=== PATIENT | male | born 1985 | race Caucasian/White ===

== ENCOUNTER 2023-03-17 22:27 | Emergency (ER) | payer MEDICAID, SELFPAY ==
[2023-03-17 22:28] VITALS: BP 126/87; PULSE 100; RESP 18; TEMP 36.7; O2SAT 96; BMI 25.9
--- NOTE | 2023-03-17 22:31 | EDS_ITS ---
HPI History of Present Illness Chief Complaint: Head Injury PFSH PFSH Allergy/AdvReac Type Severity Reaction Status Date / Time No Known Allergies Allergy Verified 03/17/23 22:30 EXAM Physical Exam Const Vital Signs: 03/17/23 22:28 Temperature 98.1 F Temperature Source Temporal Pulse Rate 100 Respiratory Rate 18 Blood Pressure 126/87 H Blood Pressure Mean 100 Pulse Ox 96 Oxygen Delivery Method Room Air [facility] Narrative Medical decision making narrative: HISTORY OF PRESENT ILLNESS: 37-year-old male here for concern for head laceration. The patient states he was work on his car when he tried to stand up and hit the back of his head. He notes a laceration to the back of the head. Denies loss of consciousness, vomiting. Denies taking blood thinners. REVIEW OF SYSTEMS: Pertinent positives: Head laceration Pertinent negatives: Loss of consciousness, focal numbness weakness or loss of sensation PHYSICAL EXAM: Nursing triage notes reviewed, Vital signs reviewed Primary Survey Airway: Intact Breathing: Bilateral breath sounds Circulation: Palpable bilateral femorals, Palpable bilateral radial, Palpable bilateral DP and Palpable bilateral PT Disability / Spine precautions GCS Score: Eye Openin Verbal Response: 5 Motor Response: 6 Secondary Survey Constitutional: Please see MDM Head: Midface stable, NO jaw malocclusion, No Cephalohematoma, approximately 2 cm linear superficial laceration noted to the posterior scalp, no galeal involvement Eye: Pupils equal round and reactive to light, Extraocular muscles intact and No periorbital ecchymosis or stepoff, no evidence of entrapment ENT: Oropharynx clear, no lacerations, no hemotympanum, no raccoon eyes or radford sign Cervical spine / Neck: No cervical spine bony tenderness, crepitance, or stepoff deformity Trachea midline Lungs: Clear to auscultation, No asymmetric rise and No crepitus, no flail chest Cardiac: Regular rate and rhythm and No murmurs Abdomen: Soft, Nontender and No rebound Pelvis: Pelvis stable to compression : No evidence of genital injury Back: No midline bony tenderness to thoracic/lumbar/sacral spines Neuro: Alert and oriented x3, neuro exam at baseline, cranial nerves II through XII are intact. No pain with extraocular muscle movement. There is negative test of skew. Normal speech. 5 of 5 strength in upper and lower extremities in flexion extension. Intact sensation to light touch in upper and lower extremity dermatomes. No truncal or extremity ataxia. No dysdiadochokinesia. Normal gait. 2+ reflexes. No meningeal signs. Negative Babinski. NIH of 0 Extremities: NO gross Deformities Psych: Normal affect Nursing triage notes reviewed, Vital signs reviewed MEDICAL DECISION MAKING: Chief Complaint: Head laceration External records reviewed: No recent ED visits or hospitalizations, no recent advanced imaging of the head MDM Narrative: The patient was hemodynamically stable, afebrile, nontoxic-appearing. There are no focal neurologic deficits on my initial exam. Primary secondary trauma surveys concerning for head laceration. Although the patient had trauma he had no loss of consciousness or red flag signs to suggest intracranial hemorrhage and as such I do not think it is appropriate for a CT scan at this time. Patient is greater than 16, is not on blood thinners, no seizure after injury, GCS was stable 2 hours postinjury, no Spectrobid or depressed skull fracture, no evidence of basilar skull fracture, no vomiting. Age less than 65, no retrograde amnesia and mechanism is not dangerous. CT scan of the head is not indicated at this time. Laceration was repaired, tetanus was updated. Please see below procedure note. Procedure: Laceration repair. The procedure was performed by myself. Indication: Wound repair Risks and benefits: risks, benefits and alternatives were discussed Consent: Consent was obtained. Wound Details: 2 cm superficial linear laceration to the posterior scalp, no galeal involvement Anesthesia: Topical lidocaine (1%) with epinephrine Wound prep: Patient was prepped and draped in the usual sterile fashion. Tetanus: Updated today Irrigation Solution: Saline Wound Preparation: Cleaned thoroughly with topical chlorhexidine The wound was explored to its base in a bloodless field. Procedure Description: I placed 5 veronica with good approximation Patient tolerated the procedure well with no immediate complications Factors affecting care: None Social determinants of health: None History obtained from others: Shared decision making: I will have a discussion with the patient and or visitors regarding risk/benefits of further testing or admission. They will be made aware of of the risk/benefits inherent in this decision they will be given the opportunity to voice understanding. Consults: None Discharge Plan Triage Chief Complaint: Head Injury ED Provider: Cosme Abdi Dx/Rx/DC Orders Primary Care Provider: Care Physician,No Primary Referrals: NOT,DEFINED [Non-Staff] -
[2023-03-17] MEDS: Diphth,Pertuss(Acell),Tet Vac 0.5 ML Vial IM (23:45)
[2023-03-17] MEDS: Lidocaine 1% (20 ml mdv) 20 ML Vial 5 ML INFILT (23:46)
[2023-03-17] MEDS: oxyCODONE 5 MG Tablet PO (23:46)
== END 2023-03-18 00:12 | disposition home or self-care (01) ==
PROVIDERS: Emergency Provider Emergency Medicine; Visit Provider Emergency Medicine
DX: S01.01XA Laceration without foreign body of scalp, initial encounter (principal); W22.09XA Striking against other stationary object, initial encounter; Y93.89 Activity, other specified; Z23 Encounter for immunization
CPT/HCPCS: 12001; 90471; 90715; 99284

== ENCOUNTER 2023-11-08 22:04 | Emergency (ER) | payer SELFPAY ==
[2023-11-08 22:05] VITALS: BP 131/83; PULSE 92; RESP 18; TEMP 36.7; O2SAT 97; BMI 26.7
--- NOTE | 2023-11-08 22:19 | EDS_ITS ---
HPI History of Present Illness Chief Complaint: Lower Extremity Injury Informant: patient Occured/Mechanism Mechanism/Context: Yes blunt trauma Onset/Context/Timing Onset: Today (JPTA) Context: Sudden Onset Timing: Continuous Quality of Pain: Aching Location: R foot 5th toe Current Severity: Severe Maximum Severity: Severe Worsened by: moving, walking Associated Symptoms Associated Symptoms: Negative for Parasthesia, Weakness or Loss of Funtion Narrative Narrative: 38-year-old who is healthy and injured his right small toe accidentally on the side of a step while he was getting dressed he states. No other injuries. PFSH PFSH Medical History no medical history Home Medications NK 03/17/23 [History Last Taken Unknown] Allergy/AdvReac Type Severity Reaction Status Date / Time No Known Allergies Allergy Verified 11/08/23 22:06 Surgical History (Updated 11/08/23 @ 22:17 by Yuliet Carlos) History of appendectomy Social History (Updated 11/08/23 @ 22:17 by Yuliet Carlos) household members: family housing: house Smoking Status: Never smoker ROS ROS ED Constitutional Constitutional ED: Denies chills or fever(s) Musculoskeletal Musculoskeletal: Reports extremity pain; Denies neck pain Integumentary Denies Abrasions, rash or wounds Neurologic Neurologic: Denies paresthesias or weakness EXAM Physical Exam Const Vital Signs: 11/08/23 22:05 Temperature 98.0 F Temperature Source Temporal Pulse Rate 92 Respiratory Rate 18 Blood Pressure 131/83 H Blood Pressure Mean 99 Pulse Ox 97 Oxygen Delivery Method Room Air Positive well nourished and well developed General Appearance ED: well developed and NAD Neck full ROM and supple Back/Spine normal ROM and normal to inspection Extremity Extremity Narrative: Purpuric right fifth toe swollen and tender without deformity. Also tender to distal fifth metatarsal but no other bony tenderness in the foot including the base of the fifth metatarsal. Neuro oriented x3, no focal motor deficits and no sensory deficits noted Sensorium / Orientation: alert Psych mental status grossly normal and thought process normal Skin no wounds Skin Narrative: Intact right foot Rashes: no rashes MDM MDM MDM Narrative Medical decision making narrative: 30 series of the right foot on my interpretation are negative for acute fracture in the area of interest. Radiology in agreement. Patient was given a postop shoe for comfort and shown how to dale tape his toes, he is given [place] here for pain but I see no reason to prescribe more narcotics, [id number] medications and other methods of supportive care advised. Radiography Diagnostic Testing: Clinical Impression(s) from Imaging Studies Foot X-Ray 11/08/23 22:30 IMPRESSION: Mild degenerative disease as described with no acute fracture or subluxation. Electronically Signed: Yanira Walker MD at 22:52 EST Reading Location ID and State: [facility] / [place] , Service support , Discharge Plan Triage Chief Complaint: Lower Extremity Injury ED Provider: Darrius Calderon Dx/Rx/DC Orders Clinical Impression: Contusion of right great toe without damage to nail, initial encounter Instructions: ED Finger or Toe Contusion Prescriptions: No Action NK Primary Care Provider: Care Physician,No Primary Referrals: Doctor,Your [Non-Staff] - As Needed Disposition Disposition: Home, Self Care
[2023-11-08] MEDS: HYDROcodone Bitartrate/Apap 5/325 Tablet PO (22:23)
--- NOTE | 2023-11-08 22:30 | RAD_ITS ---
STUDY: X-RAY - RIGHT FOOT CLINICAL: Male, 38 years old. injury TECHNIQUE: 3 view(s) of the foot. COMPARISON: None. FINDINGS: Normal talus, calcaneus, and tarsal bones. Normal visualized subtalar, talonavicular, calcaneocuboid, tarsal and tarsometatarsal articulations. Normal metatarsi. There is degenerative arthrosis of the metatarsophalangeal joint of the hallux . Normal tibial and fibular sesamoid bones. Normal interphalangeal joint of the great toe. Normal phalanges of the great toe. Normal second through fifth metatarsophalangeal joints. Normal interphalangeal joints and phalanges of the lesser toes. Mild soft tissue swelling along the dorsum of the foot. There is no demonstrated fracture. RAD/Foot min 3 Views IMPRESSION: Mild degenerative disease as described with no acute fracture or subluxation. Electronically Signed: Yanira Walker MD at 22:52 EST ,
--- OUTSIDE RECORDS SUMMARY | 2023-11-08 22:38 | XMS RPT_ITS | CCD ---
Author Name Unknown Address [address] [place] [id number] Organization [facility] Care Team Providers Care Memorandum Statement Clerk Name Role Phone Justice Maher Unavailable Unavailable Justice Maher Unavailable Unavailable Justice Maher Unavailable Unavailable Justice Maher Unavailable Unavailable TremontDatToribio P. Unavailable Unavailabl e Tremont, Toribio P. Unavailable Unavailabl e UNKNOWN, PCP Unavailable Unavailable UNKNOWN, PCP Unavailable Unavailable TremontToribio daniel Unavailable Unava ilable TremontToribio Unavailable Unava ilable TremontToribiorick Unavailable Unava ilable UNKNOWN, PCP Unavailable Unavailable Unavailable Primary Care Provider UnavailKELLI Mosley Attending Unavailable CECILIO CONTI Primary Care Unavailable Cecilio Conti MD Primary Care Provider Allergies Allergy Classification Reported Allergen(s) Allergy Type Date of Onset Reaction(s) Facility (3 sources) Amoxicillin; Translations: [AMOXICILLIN] Drug Allergy 02-21-2019 Rash [facility] Medications Current Medications Medication Drug Class(es) Dates Sig (Normalized) Sig (Original) benzonatate 100 mg oral capsule (1 source) Non-narcotic Antitussive Start: 11-29-2022 End: 12-06-2022 take 1 capsule by mouth every eight hours as needed for cough and cough benzonatate (TESSALON PERLES) 100 mg capsule Indications: Acute cough Take 1 capsule by mouth three times daily as needed for up to 7 days. 21 capsule 0 11/29/2022 12/06/2022 Active Completed/Discontinued Medications Medication Drug Class(es) Dates Sig (Normalized) Sig (Original) acetaminophen 500 mg oral tablet (2 sources) Start: 08-07-2019 take 2 tablets by mouth every six hours as needed acetaminophen (TYLENOL) 500 mg tablet Take 2 tablets by mouth four times daily as needed for Pain or Fever. Do not exceed 8 tablets (4 grams) in a 24 hour period 50 tablet 0 08/07/2019 Active Problems Active Problems Problem Classification Problem Date Documented Da te Episodic/Chronic Anxiety disorders (2 sources) Anxiety; Translations: [Anxiety disorder, unspecified] Onset: 10-18-2021 10-18-2021 Chronic Appendicitis and other appendiceal conditions (1 source) Appendicitis and other appendiceal conditions Onset: 06-28-2017 Other lower respiratory disease (1 source) Cough; Translations: [Acute cough] Episodic Other upper respiratory infections (2 sources) Sore throat symptom; Translations: [Acute pharyngitis, unspecified] Episodic Rehabilitation care; fitting of prostheses; and adjustment of devices (2 sources) Patient encounter status; Translations: [Encounter for fitting and adjustment of other specified devices] Onset: 04-10-2014 04-10-2014 Chronic Sprains and strains (1 source) Strain of unspecified muscle, fascia and tendon at shoulder and upper arm level, left arm, initial encounter; Translations: [Strain of left elbow, initial encounter] Onset: 10-04-2022 Episodic Substance-related disorders (2 sources) Tobacco user; Translations: [Nicotine dependence, unspecified, uncomplicated] Onset: 10-18-2021 10-18-2021 Chronic Unclassified (1 source) Unknown / UNK(Unknown) Onset: 03-04-2018 Past or Other Problems Problem Classification Problem Date Documented Da te Episodic/Chronic Fracture of lower limb (2 sources) Closed fracture of metatarsal bone; Translations: [Fracture of unspecified metatarsal bone(s), unspecified foot, initial encounter for closed fracture] Onset: 04-15-2014 04-15-2014 Episodic Other injuries and conditions due to external causes (2 sources) Bone injury; Translations: [Other injury of unspecified body region, initial encounter] Onset: 04-15-2014 04-15-2014 Episodic Other injuries and conditions due to external causes (2 sources) Hematoma; Translations: [Other injury of unspecified body region, initial encounter] Onset: 04-15-2014 04-15-2014 Episodic Other non-traumatic joint disorders (2 sources) Chronic pain of right upper limb; Translations: [Pain in right shoulder] Onset: 10-19-2021 10-19-2021 Episodic Spondylosis; intervertebral disc disorders; other back problems (2 sources) Chronic neck pain; Translations: [Cervicalgia] Onset: 10-19-2021 10-19-2021 Episodic Unclassified (1 source) LEFT THUMB LACERATION Onset: 03-04-2018 Viral infection (3 sources) Disease caused by 2019-nCoV; Translations: [COVID-19] Onset: 10-18-2021 Episodic Results Test Name Value Interpretation Reference Range Facil ity Vital Signs Date Time Vital Sign Value Performing Clinician Faci lity 11-29-2022 14:59-0500 Body temperature 97.3 [degF] Liliya Lopez APRN.ASSEMBLER CAMPER Work Phone: [facility] 11-29-2022 14:59-0500 Body weight 94.26 kg Liliya Lopez APRN.CNP Work Phone: [facility] 11-29-2022 14:59-0500 Diastolic blood pressure 64 mm[Hg] Liliya Lopez APRN.ASSEMBLER CAMPER Work Phone: [facility] 11-29-2022 14:59-0500 Heart rate 68 /min Liliya Lopez APRN.ASSEMBLER CAMPER Work Phone: [facility] 11-29-2022 14:59-0500 Respiratory rate 16 /min Liliya Lopez APRN.ASSEMBLER CAMPER Work Phone: [facility] 11-29-2022 14:59-0500 SaO2% (BldA) [Mass fraction] 98 % Liliya Lopez APRN.ASSEMBLER CAMPER Work Phone: [facility] 11-29-2022 14:59-0500 Systolic blood pressure 104 mm[Hg] Liliya Lopez APRN.ASSEMBLER CAMPER Work Phone: [facility] Encounters Encounter Date Encounter Type Care Provider Facility Start: 11-29-2022 End: 11-29-2022 Patient encounter procedure Liliya Lopez APRN.CNP Work Phone: [facility] Procedures Date Procedure Procedure Detail Performing Clinician Start: 11-29-2022 STREP A MOLECULAR (POC) Liliya Lopez APRN.CNP Work Phone: Start: 10-17-2021 Adult depression screening assessment Cecilio Conti MD Work Phone: Plan of Treatment Date Care Activity Detail Author Start: 03-04-2028 Urine microalbumin profile DTAP,TDAP,TD (5 - Td or Tdap) [facility] Start: 11-06-2022 DEPRESSION ASSESSMENT DEPRESSION ASS ESSMENT [facility] Start: 10-18-2022 PNEUMOCOCCAL (2 - PCV) PNEUMOCOCCAL (2 - PCV) [facility] Start: 10-17-2022 Adult depression screening assessment DEPRESSION SCREENING [facility] Start: 07-07-2022 Influenza vaccination INFLUENZA (#1) [facility] Start: 2018 LIPID SCREEN LIPID SCREEN [facility] Start: 2001 HEPATITIS C SCREENING HEPATITIS C SC CHOCONING [facility] Start: 2001 HIV SCREENING HIV SCREENING [facility] Start: 1983 HEPATITIS B (1 of 3 - 3-dose series) HEPATITIS B (1 of 3 - 3-dose series) [facility] Immunizations Immunization Date Immunization Notes Care Provider Crystal chance 10-18-2021 pneumococcal polysaccharide vaccine, 23 valent Cecilio Conti MD Work Phone: [facility] 08-28-2021 influenza, injectabl e, quadrivalent, preservative free Cecliio Conti MD Work Phone: [facility] Work Phone: 03-20-2021 COVID-19 vaccine, ag e 12+ yr ([email or web address] - PURPLE TOP) Cecilio Conti MD Work Phone: [facility] Work Phone: 09-26-2020 influenza, injectabl e, quadrivalent, preservative free Cecilio Conti MD Work Phone: [facility] Work Phone: 09-29-2019 influenza, injectabl e, quadrivalent, contains preservative Cecilio Conti MD Work Phone: [facility] 03-04-2018 tetanus toxoid, redu joe diphtheria toxoid, and acellular pertussis vaccine, adsorbed Cecilio Conti MD Work Phone: [facility] Work Phone: 08-30-2016 tetanus toxoid, redu joe diphtheria toxoid, and acellular pertussis vaccine, adsorbed Cecilio Conti MD Work Phone: [facility] Work Phone: 01-07-2015 tetanus toxoid, redu joe diphtheria toxoid, and acellular pertussis vaccine, adsorbed Cecilio Conti MD Work Phone: [facility] Work Phone: 03-04-2013 tetanus toxoid, redu joe diphtheria toxoid, and acellular pertussis vaccine, adsorbed Cecilio Conti MD Work Phone: [facility] Payers Date Payer Category Payer Medicaid [id number] 2020 Medicaid [employer] [id number] 2020-Present [phone] [address] [place] [address] Medicaid [id number] Private Health Insurance [id number] Social History Date Type Detail Facility Start: 10-18-2021 [facility] Work Phone: End: 08-06-2022 History of tobacco use Cigarette Smoker [facility] Work Phone: Start: 10-18-2021 End: 10-03-2022 Cigarettes smoked current (pack per day) - Reported 1 [facility] Start: 10-18-2021 End: 10-03-2022 Tobacco use and exposure Smokeless tobacco non-user [facility] Work Phone: Start: 10-18-2021 End: 11-29-2022 Alcohol intake Current drinker of alcohol (finding) [facility] Start: 10-17-2021 History SDOH Alcohol Frequency 3 [facility] Start: 10-17-2021 History SDOH Alcohol Std Drinks 2 [facility] Start: 04-05-2014 History SDOH Alcohol Comment rarely [facility] Start: 10-17-2021 History SDOH Social Connections Meetings 1 [facility] Start: 10-17-2021 History SDOH Physica l Activity DPW 5 [facility] Start: 10-17-2021 History SDOH Physica l Activity MPS 15 [facility] Start: 1985 Sex Assigned At Not on file [facility] Start: 10-03-2022 Tobacco smoking stat us MEIS Ex-smoker [facility] End: 08-06-2022 History of tobacco use Current smoker [facility] History of Present illness Narrative 11-29-2022 Liliya Lopez APRN.ASSEMBLER CAMPER - 11/29/2022 3:09 PM EST Note Date & Type Note Facility 11-29-2022 History of Presen t illness Narrative CC: Patient presents with: Cough: Cough, ST, SOB and sinus drainage x 3 days HPI: Jaquan Galloway is a 37 year old male who presents to the office with complaint of cough, nonproductive, sore throat, and sinus symptoms for a few days. Symptoms are worsening Associated symptoms includes dyspnea and says lungs feel heavy. Denies fever, ear pain, nausea, vomiting , and diarrhea. Treatments tried include nothing so far. with no relief of symptoms. Sick contacts: unknown. History of asthma, frequent episodes of bronchitis, chronic bronchitis, bronchiectasis or COPD: No Smoker: No Seasonal/environmental allergies: No The ROS is otherwise negative. The patient's pmh, medications, allergies, and past visits are reviewed. PHYSICAL EXAM: BP 104/64 Pulse 68 Temp 36.3 C (97.3 F) (Tympanic) Resp 16 Wt 94.3 kg (207 lb 12.8 oz) SpO2 98% BMI 25.63 kg/m General appearance: alert, cooperative, pleasant, in no acute distress Head: Normocephalic Eyes: EOM's intact, conjunctiva pink and moist, no icterus, sclera white, non-injected Ears: Right ear: External ear/canal- Normal, TM - clear with good landmarks. Left ear: External ear/canal- Normal, TM - clear with good landmarks Oropharynx:moist without lesions, No erythema, exudates or tonsillar hypertrophy. Heart: Negative. RRR without obvious murmur, gallop, or rubs. No ectopy. Lungs: clear to auscultation, without rales or wheeze, good air exchange PAST MEDICAL HISTORY Diagnosis Date Anxiety Back pain Genital warts Tobacco use disorder PAST SURGICAL HISTORY Procedure Laterality Date ORTHOPEDICS SURGERY HX Right right shoulder, early 20's ALLERGIES Amoxicillin MEDICATIONS acetaminophen (TYLENOL) 500 mg tablet Take 2 tablets by mouth four times daily as needed for Pain or Fever. Do not exceed 8 tablets (4 grams) in a 24 hour period nicotine (NICODERM CQ) 21 mg/24 hr Apply 1 Patch as directed every 24 hours. (Patient not taking: Reported on 10/03/2022) fluticasone (FLONASE) 50 mcg/actuation nasal spray Use 2 Sprays in each nostril daily at bedtime. (Patient not taking: Reported on 10/03/2022) ibuprofen (MOTRIN) 600 mg tablet Take 1 tablet by mouth every 6 hours as needed. (Patient not taking: Reported on 10/03/2022) FAMILY HISTORY Problem Relation Age of Onset COPD Mother Colon Polyps Father COPD Father other (Aortic aneurysm) Father Social History Tobacco Use Smoking status: Former Packs/day: 1.00 Years: 22.00 Pack years: 22.00 Types: Cigarettes Quit date: 08/06/2022 Years since quittin.3 Smokeless tobacco: Never Vaping Use Vaping Use: Never used Substance Use Topics Alcohol use: Yes Comment: rarely Drug use: No ASSESSMENT/PLAN: 1. Acute cough - ICD9: 786.2, ICD10: R05.1 (primary diagnosis) - XR CHEST 2V FRONTAL/LAT - XR CHEST 2V FRONTAL/LAT - PREDNISONE 10 MG TABLET - BENZONATATE 100 MG CAPSULE Albuterol PRN- patient request 2. Sore throat - ICD9: 462, ICD10: J02.9 - STREP A MOLECULAR (POC) - neg 3. URI, acute - ICD9: 465.9, ICD10: J06.9 - LORATADINE 10 MG TABLET * * * * Physician Interpretation * * * * EXAMINATION: CHEST RADIOGRAPH (2 VIEW FRONTAL & LATERAL) CLINICAL HISTORY: Acute cough MQ: [id number] EXAM DATE/TIME: 11/29/2022 3:18 PM COMPARISON: Chest x-ray on 08/07/2019 RESULT: Lines, tubes, and devices: None. Lungs and pleura: No consolidation. No lung mass. No pleural effusion. No pneumothorax. Cardiomediastinal silhouette: Normal cardiomediastinal silhouette. Bones and soft tissues: Unremarkable. IMPRESSION IMPRESSION: No acute radiographic abnormality. Tong Hooker: MIKEL Transcribe Date/Time: Nov 29 2022 3:25P Dictated by : LUCY MOELLER MD Prescription instructions reviewed with patient as applicable. Potential red flag symptoms discussed with the patient. Reviewed appropriate action plan to take if red flag symptoms occur. Patient agreeable to treatment plan. Liliya Lopez APRN.ASSEMBLER CAMPER documented in this encounter [facility] Progress note 07-04-2022 Note Date & Type Note Facility 07-04-2022 Note HNO ID: [id number] Author: Cecilio Conti MD Service: ? Author Type: Physician Type: Progress Notes Filed: 07/04/2022 4:33 PM Note Text: AMBULATORY TELEPHONE VISIT Jaquan Galloway has consented to this telephone encounter. Persons Present: patient Chief Complaint/Reason: Coronavirus infection HPI: He has been ill for 1 week. He has upper respiratory symptoms and malaise. He denies shortness of breath. He has tried nbpf-apm-huinght medication with modest relief. He is aware that his received monoclonal antibodies. He has an interest in the same. She has a history of asthma. He does not have any chronic health conditions. He does not qualify. He also does not qualify for oral medication. He understands. Data Reviewed: EPIC ASSESSMENT/PLAN: 1. COVID - ICD9: 079.89, ICD10: U07.1 He does not qualify for monoclonal antibodies or oral medication. He understands. He will use Aleve, Tylenol, or Motrin. He will also use Mucinex as needed. He will seek immediate medical attention if his oxygen saturation is less than 94% or if he has shortness of breath. We will provide him with a letter that he can share with work that tentatively has him returning to work on July 06. Total Time Spent: 21 minutes Cecilio Conti MD [facility] History of Present illness Narrative 07-04-2022 Cecilio Conti MD - 07/04/2022 4:26 PM EDT Note Date & Type Note Facility 07-04-2022 History of Presen t illness Narrative AMBULATORY TELEPHONE VISIT Jaquan Galloway has consented to this telephone encounter. Persons Present: patient Chief Complaint/Reason: Coronavirus infection HPI: He has been ill for 1 week. He has upper respiratory symptoms and malaise. He denies shortness of breath. He has tried dwcr-bmz-hikdvtu medication with modest relief. He is aware that his received monoclonal antibodies. He has an interest in the same. She has a history of asthma. He does not have any chronic health conditions. He does not qualify. He also does not qualify for oral medication. He understands. Data Reviewed: [facility] ASSESSMENT/PLAN: 1. COVID - ICD9: 079.89, ICD10: U07.1 He does not qualify for monoclonal antibodies or oral medication. He understands. He will use Aleve, Tylenol, or Motrin. He will also use Mucinex as needed. He will seek immediate medical attention if his oxygen saturation is less than 94% or if he has shortness of breath. We will provide him with a letter that he can share with work that tentatively has him returning to work on July 06. Total Time Spent: 21 minutes Cecilio Conti MD documented in this encounter [facility] Progress note 11-03-2021 Note Date & Type Note Facility 11-03-2021 Note HNO ID: [id number] Author: Tad Campuzano Pss Service: ? Author Type: ? Type: Progress Notes Filed: 11/03/2021 9:31 AM Note Text: Verbal order given by Dr. Toure [facility] Progress note 10-18-2021 Note Date & Type Note Facility 10-18-2021 Note HNO ID: [id number] Author: Adriana Sheppard APRN.ASSEMBLER CAMPER Service: ? Author Type: Nurse Practitioner Type: Progress Notes Filed: 10/19/2021 1:04 PM Note Text: Subjective HPI Jaquan Galloway is a 36 year old male who presents to [facility]. He has multiple concerns. He c/o anxiety and associated insomnia, also has history of depression but does not feel depressed currently. Patient has never been treated for this, is interested in doing counseling. He has chronic right shoulder and neck pain, has been worse recently, works on cars for a living, does a lot of strenuous physical activity. He does not take medication regularly for pain, declines PT at this time. Patient is a current smoker, would like to try nicotine patch to stop, also needs Pneumovax. He reports history of genital herpes, would like to discuss treatment options, will need STD screening. Review of Systems Respiratory: Negative. Cardiovascular: Negative. Genitourinary: Negative. Musculoskeletal: Positive for joint pain and neck pain. Psychiatric/Behavioral: Negative for depression. The patient is nervous/anxious and has insomnia. Objective Physical Exam Vitals reviewed. Constitutional: Appearance: Normal appearance. Cardiovascular: Rate and Rhythm: Normal rate and regular rhythm. Heart sounds: Normal heart sounds. Pulmonary: Effort: Pulmonary effort is normal. Breath sounds: Normal breath sounds. Musculoskeletal: Right shoulder: Tenderness and crepitus present. Cervical back: Tenderness present. No bony tenderness. Normal range of motion. Psychiatric: Mood and Affect: Mood normal. Thought Content: Thought content normal. ASSESSMENT/PLAN: 1. Anxiety - ICD9: 300.00, ICD10: F41.9 (primary diagnosis) - Patient appears to have some obsession - CONSULT TO PSYCHIATRY - CONSULT TO PSYCHOLOGY 2. Chronic right shoulder pain - ICD9: 719.41, 338.29, ICD10: M25.511, G89.29 - Recent worsening - XR SHOULDER GENERAL 3V OR MORE AP/TRUE AP/OTHER RIGHT - Will determine treatment plan after x-ray reviewed, declines PT at this time 3. Chronic neck pain - ICD9: 723.1, 338.29, ICD10: M54.2, G89.29 - XR CERV OTHER 4V AP/LAT/FLX/EXT 4. Tobacco use disorder - ICD9: 305.1, ICD10: F17.200 - Cessation encouraged. - Physiologic and physical aspects of tobacco addiction as well as strategies for quitting were discussed. - Counseling was given focusing on the harmful effects of this addiction especially given the patient's medical condition(s) which will be worsened because of the chemicals in tobacco. - NICOTINE 21 MG/24 HR DAILY TRANSDERMAL PATCH - PNEUMOCOCCAL IMMUNIZATION PPSV 23 5. Screen for STD (sexually transmitted disease) - ICD9: V74.5, ICD10: Z11.3 - HIV 1 2 COMBO(AG/AB),WITH REFLEX TO DIFFERENTIATION - HEP REMOTE PANEL BL - HERPES SIMPLEX TYPE 1 AND 2 IG - SYPHILIS TOTAL W/REFLEX - GC/CHLAMYDIA AMPLIF, URINE 6. Healthcare maintenance - ICD9: V70.0, ICD10: Z00.00 - CBC + DIFF (FOR REMOTE [facility] USE) - CMP (CMP) (FOR REMOTE [facility] USE) - LIPID PANEL (LIPB) (FOR REMOTE [facility] USE) - URINALYSIS DIPSTICK ONLY (FOR REMOTE [facility] USE) - VITAMIN D 25 HYDROXY 7. Encounter for immunization - ICD9: V03.89, ICD10: Z23 - PNEUMOCOCCAL IMMUNIZATION PPSV 23 *Patient will schedule appt with collaborating physician, Dr. Villarreal, to discuss treatment of genital warts. Adriana Sheppard APRN.ASSEMBLER CAMPER [facility] Progress note 09-03-2021 Note Date & Type Note Facility 09-03-2021 Note HNO ID: [id number] Author: Adriana Sheppard APRN.ASSEMBLER CAMPER Service: ? Author Type: Nurse Practitioner Type: Progress Notes Filed: 09/03/2021 5:31 PM Note Text: Subjective HPI Jaquan Galloway is a 36 year old male who presents with c/o nasal congestion, pressure in head behind eyes and nose, runny nose, fatigue, fever up to 100 two days ago, and cough at night x 2 days. He has tried Dayquil, Mucinex, allergy med, Sudafed, Tylenol and Motrin - no relief. He has been around ill coworkers, had negative COVID-19 test today. Review of Systems Constitutional: Positive for fever and malaise/fatigue. Negative for chills and diaphoresis. HENT: Positive for congestion and sinus pain. Negative for ear discharge, ear pain and sore throat. Respiratory: Positive for cough. Objective Physical Exam Vitals reviewed. Constitutional: Appearance: He is not diaphoretic. HENT: Right Ear: Tympanic membrane, ear canal and external ear normal. Left Ear: Ear canal and external ear normal. Tympanic membrane is erythematous. Nose: Congestion and rhinorrhea present. Mouth/Throat: Pharynx: Posterior oropharyngeal erythema present. No oropharyngeal exudate. Cardiovascular: Rate and Rhythm: Normal rate and regular rhythm. Heart sounds: Normal heart sounds. Pulmonary: Effort: Pulmonary effort is normal. Breath sounds: Normal breath sounds. Lymphadenopathy: Head: Right side of head: No submental, submandibular, tonsillar, preauricular, posterior auricular or occipital adenopathy. Left side of head: No submental, submandibular, tonsillar, preauricular, posterior auricular or occipital adenopathy. ASSESSMENT/PLAN: 1. Acute non-recurrent maxillary sinusitis - ICD9: 461.0, ICD10: J01.00 - Will begin treatment with as per antibiotic as written, see orders - Supportive care with plenty of fluids, rest, and analgesia prn. - Follow up in 3-5 days if symptoms persist or worsen. - AZITHROMYCIN 250 MG TABLET - FLUTICASONE PROPIONATE 50 MCG/ACTUATION NASAL SPRAY,SUSPENSION Adriana Sheppard, INDER.MARY GRACE [facility] Progress note 09-03-2021 Note Date & Type Note Facility 09-03-2021 Note HNO ID: [id number] Author: Tad Campuzano [facility] Service: ? Author Type: ? Type: Progress Notes Filed: 09/03/2021 8:00 AM Note Text: Verbal order given by Dr. Toure [facility] Evaluation note Note Date & Type Note Facility documented in this encounter [facility] Evaluation note Note Date & Type Note Facility documented in this encounter [facility] Summary Purpose Family History No Family History Records FoundNo Family History Records FoundNo Family History Records FoundNo Family History Records FoundNo Family History Records FoundNo Family History Records FoundNo Family History Records Found Advance Directives No Advanced Directives Records FoundNo Advanced Directives Records FoundNo Advanced Directives Records FoundNo Advanced Directives Records FoundNo Advanced Directives Records FoundNo Advanced Directives Records FoundNo Advanced Directives Records Found Reason for Referral Specialty Diagnoses / Procedures Referred By Contac t Referred To Contact Diagnoses Acute cough Liliya Lopez, [employer]LECT[employer]SEM[employer] [address] [place] [id number] Referral ID Status Reason Start Date Expiration Date Visits Re quested Visits Authorized [id number] Closed 1 1 Additional Source Comments (unrecognized sect ion and content) No Status Records FoundNo Status Records FoundNo Status Records FoundNo Status Records FoundNo Status Records FoundNo Status Records FoundNo Status Records Found INFORMATION SOURCE (unrecogn ized section and content) DATE CREATED AUTHOR AUTHOR'S ORGANIZ ATION 04/26/2018 [facility] [place] DATE CREATED AUTHOR AUTHOR'S ORGANIZ ATION 01/18/2021 [facility] DATE CREATED AUTHOR AUTHOR'S ORGANIZ ATION 03/13/2021 [facility] DATE CREATED AUTHOR AUTHOR'S ORGANIZ ATION 03/31/2021 [facility] DATE CREATED AUTHOR AUTHOR'S ORGANIZ ATION 07/05/2022 [facility] DATE CREATED AUTHOR AUTHOR'S ORGANIZ ATION 10/05/2022 [facility] Source Comments (unrecognize d section and content) In the event this informatio n is protected by the Federal Confidentiality of Alcohol and Drug Abuse Patient Records regulations: The Federal rules restrict any use of the information to criminally investigate or prosecute any alcohol or drug abuse patient.[facility] the event this information is protected by the Federal Confidentiality of Alcohol and Drug Abuse Patient Records regulations: The Federal rules restrict any use of the information to criminally investigate or prosecute any alcohol or drug abuse patient.[facility] Reason for Visit (unrecogniz ed section and content) Reason Comments Cough Cough, ST, SOB and s inus drainage x 3 days Care Teams (unrecognized sec tion and content) FOR RECORDS PERTAINING TO PATIENTS WHO ARE OR HAVE BEEN ENROLLED IN A CHEMICAL DEPENDENCY/SUBSTANCEABUSE PROGRAM, SOME INFORMATION MAY BE OMITTED. This clinical summary was aggregated from multiple sources. Caution should be exercised in using it in the provision of clinical care. This summary normalizes information from multiple sources, and as a consequence, information in this document may materially change the coding, format and clinical context of patient data. In addition, data may be omitted in some cases. CLINICAL DECISIONS SHOULD BE BASED ON THE PRIMARY CLINICAL RECORDS. [facility] [employer] [facility]. provides no warranty or guarantee of the accuracy or completeness of information in this document.
[2023-11-08 23:32] VITALS: RESP 14
== END 2023-11-08 23:33 | disposition home or self-care (01) ==
PROVIDERS: Emergency Provider Emergency Medicine; Visit Provider Emergency Medicine
DX: S90.111A Contusion of right great toe without damage to nail, initial encounter (principal); W22.09XA Striking against other stationary object, initial encounter
CPT/HCPCS: 73630; 99283